=== PATIENT | male | born 1945 | race Caucasian/White ===

== ENCOUNTER → 2019-08-10 13:04 | Outpatient (CLI) | payer OTHER, SELFPAY ==
--- NOTE | 2019-08-10 | DI.ECHO.S_ITS ---
[facility]---------+ [facility] +---------+ : : [address] : [place] [address] : : : : [phone] : : : : Phone: [phone]---------+ Echocardiogram Report + + :Name: CARLOS JENSEN Study Date: 08/10/2019 Height: 75 in : :[facility] Weight: 216 lb : : Gender: Male BSA: 2.3 m2 : :: 1945 Age: 73 yrs BP: 146/88 mmHg: :Reason For Study: AFIB : : Performed By: Bryant Boone : :Referring: MAGALIE LLOYD : + + Interpretation Summary The left ventricle is normal in size. There is mild concentric left ventricular hypertrophy. Left ventricular systolic function is normal. The ejection fraction is estimated to be 55-60%. Left ventricular wall motion is normal. The right ventricle is mildly dilated. The right ventricular systolic function is normal. The right ventricular systolic pressure is estimated to be at least 41 mmHg based on an estimated right atrial pressure of 15 mm Hg. There is severe biatrial enlargement. There is mild mitral regurgitation. There is mild to moderate tricuspid regurgitation. There is no other significant valvular heart disease. The ascending aorta is mildly enlarged. Procedure: A two-dimensional transthoracic echocardiogram with color flow and Doppler was performed. The study quality was technically adequate. There is no prior echocardiogram noted for this patient. The patient was in atrial fibrillation with heart rates between 68-86 bpm during the exam. Left Ventricle: The left ventricle is normal in size. There is mild concentric left ventricular hypertrophy. Left ventricular systolic function is normal. The ejection fraction is estimated to be 55-60%. Left ventricular wall motion is normal. Right Ventricle: The right ventricle is mildly dilated. The right ventricular systolic function is normal. Atria: There is severe biatrial enlargement. The interatrial septum is intact with no evidence for an atrial septal defect. Mitral Valve: The mitral valve leaflets appear mildly thickened, but open well. The mitral valve leaflets are mildly calcified. There is mild mitral annular calcification. There is mild mitral regurgitation. Aortic Valve: There is mild aortic valve sclerosis. The aortic valve is trileaflet. The aortic valve opens well. There is trace aortic regurgitation. Tricuspid Valve: The tricuspid valve is normal in structure and function. There is mild to moderate tricuspid regurgitation. The right ventricular systolic pressure is estimated to be at least 41 mmHg based on an estimated right atrial pressure of 15 mm Hg. Pulmonic Valve: The pulmonic valve is normal in structure and function. There is trace pulmonic regurgitation. There is no other significant valvular heart disease. Great Vessels: The aortic root is borderline dilated. The ascending aorta is mildly enlarged. The pulmonary artery is normal size. The IVC is dilated (diameter is greater than 2.1 cm) yet it collapses greater than 50% with a sniff. This suggests a right atrial pressure of 8 mm Hg. Pericardium/ Pleura There is no pericardial effusion. There is no pleural effusion. MMode/2D Measurements & Calculations LVIDd: 4.9 cm LVOT diam: 2.3 cm LVIDs: 3.4 cm Ao root diam: 3.7 cm FS: 30.5 % Aortic Jxn: 3.3 cm EPSS: 0.57 cm asc Aorta Diam: 3.9 cm IVSd: 1.3 cm LVPWd: 1.3 cm LV mccormack. diameter/BSA (cm/m^2): 2.2 LV sys. diameter/BSA (cm/m^2): 1.5 LA A2 area: 39.7 cm2 RA long axis: 8.1 cm LA A4 area: 36.2 cm2 RA area: 37.2 cm2 LA length (vol): 7.2 cm RA vol: 144.6 ml LA vol: 170.0 ml RA : 63.8 ml/m2 LA vol index: 75.0 ml/m2 TAPSE: 2.1 cm Doppler Measurements & Calculations Ao V2 max: 87.9 cm/sec LVOT Max Jamar: 73.7 cm/sec Ao V2 mean: 65.8 cm/sec LV V1 max P.2 mmHg Ao max P.1 mmHg LV V1 VTI: 14.6 cm Ao mean P.9 mmHg JENNIFER(I,D): 3.7 cm2 Ao V2 VTI: 16.5 cm JENNIFER(V,D): 3.5 cm2 sev ratio: 0.88 JENNIFER indexed to BSA (cm^2/m^2): 1.6 MV E max jamar: 78.6 cm/sec TR max jamar: 265.3 cm/sec Med Peak E' Jamar: 8.2 cm/sec TR max P.2 mmHg E/E' med: 9.6 PA V2 max: 62.7 cm/sec Lat Peak E' Jamar: 11.1 cm/sec PA V2 mean: 45.4 cm/sec E/E' lat: 7.1 PA mean P.93 mmHg E/e' average: 8.4 PA Accel Time: 0.08 sec MV dec time: 0.18 sec SV(LVOT): 61.6 ml Reading Physician:05:43 PM
== END ==
PROVIDERS: Visit Provider Physician Assistant
DX: I08.3 Combined rheumatic disorders of mitral, aortic and tricuspid valves (principal); I77.89 Other specified disorders of arteries and arterioles; I48.20 Chronic atrial fibrillation, unspecified
CPT/HCPCS: 93306